=== PATIENT | male | born 1980 | race African-American/Black ===

== ENCOUNTER 2017-07-08 13:17 | Emergency (ER) | payer SELFPAY ==
[2017-07-08 13:25] VITALS: BP 168/101; BMI 28.7
[2017-07-08 13:52] LABS: BILIRUBIN,URINE NEGATIVE (NEGATIVE); BLOOD/HEMOGLOBIN,URINE NEGATIVE (NEGATIVE); GLUCOSE, URINE NEGATIVE (NEGATIVE); KETONES,URINE NEGATIVE (NEGATIVE); LEUKOCYTE ESTERASE ,URINE NEGATIVE (NEGATIVE); NITRITES,URINE NEGATIVE (NEGATIVE); PROTEIN,URINE 1+ (NEGATIVE); UROBILINOGEN,URINE NORMAL (NORMAL)
[2017-07-08] MEDS ORDERED: NORFLEX INJ IM ONE (13:53)
[2017-07-08] MEDS ORDERED: TORADOL 60 MG VIAL IM ONE (13:53)
--- NOTE | 2017-07-08 13:53 | DR.MBACK ---
HPI - Time Seen Time seen: 13:50 - PCP Primary Care Physician: NATALY - HPI Comment HPI Comment: NO FEVER. NO DYSURIA, DIARRHEA, N/V. PATIENTS PAIN IS GETTING WORSE. DENIES HEMATURIA. - Complaint Chief Complaint Doctors Comments: LOWER BACK PAIN, LOWER ABDOMINAL PAIN GOING TO SCROTUM AND UPPER THIGH AND CYST ON LT TESTIS THAT IS ALSO HURTING TODAY. STARTED TODAY. Chief Complaint:: PT C/O BACK THAT STARTED AROUND LUNCH PT HAS A CYST THAT IS ON HIS LEFT TESTICAL THAT CAUSES HIM PAIN.. PT IS UNABLE TO SIT .. PT C/O DULL AND THROBBING PAIN . - Reviewed Nurses Notes Review: Yes - Source History Provided: Patient - Mode of Arrival Mode of Arrival: Ambulatory - Timing Onset of Chief Complaint: 07/07/17 - Duration Duration: Constant Duration: Hours - Location Back Pain Location: Lumbar Radiation To: Buttock, Thigh - Severity Severity: Moderate - Quality Quality: Sharp - Context Onset: Spontaneous History of: None - Modifying Factors Worsened By: None - Associated Signs and Symptoms Back Pain Symptoms: Abdominal Pain Numbness: None Weakness: None PMH - PMH Past Medical History: Yes Past Medical History: Hypertension Past Surgical History: Yes Surgical History: Other - Family History History of Family Medical Conditions: Yes Family Medical History: Diabetes Mellitus, [place], Hypertension - Social History Does patient currently use any type of tobacco product: Yes Have you used tobacco products in the last 12 months: Yes Type of Tobacco Use: Cigarettes How many years tobacco product used: 23 Does any household member use tobacco: No Alcohol Use: None Do you use any recreational Drugs:: No Lives With: Family Lives Where: Home - infectious screening In the last 2 months have you had wt loss of >10#?: NO Have you had fever, night sweats or hemotysis?: No Have you traveled outside the country in the last 6 months?: No Isolation: Standard ROS - Review of Systems Constitutional: No Symptoms Reported Eyes: No Symptoms Reported. negative: Eye Pain, Discharge ENTM: No Symptoms Reported. negative: Ear Pain, Nose Discharge, Nose Congestion , Throat Pain Respiratoy: No Symptoms Reported. negative: Productive Cough, Short of Breath, Wheezing, Hemoptysis Cardiovascular: No Symptoms Reported Gastrointestinal/Abdominal: Abdominal Pain Genitourinary: No Symptoms Reported. negative: Dysuria, Frequency, Hematuria Neurological: No Symptoms Reported Musculoskeletal: Back Pain, Back Integumentary: No Symptoms Reported Hematologic/Lymphatic: No Symptoms Reported Endocrine: No Symptoms Reported All Other Systems: Reviewed and Negative PE - Vital Signs Vitals: Temperature 96.9 F Pulse Rate 115 Respiratory Rate 20 Blood Pressure [Right Arm] 155/52 Blood Pressure [Left Arm] 191/91 Blood Pressure 168/101 O2 Sat by Pulse Oximetry 100 - General Limitations: No Limitations General Appearance: Alert - Head Head Exam: Normal Inspection - Eyes Eye exam: Normal Appearance - ENT ENT Exam: Normal External Ear Exam - Chest Chest Inspection: Symmetric Chest Wall Rise - Respiratory Respiratory Exam: Normal Lung Sounds Bilat Respiratory Exam: Bilateral Clear to Auscultation - Cardiovascular Cardiovascular Exam: Regular Rate, Normal Rhythm, Normal Heart Sounds - Abdominal Exam Abdominal Exam: Normal Bowel Sounds, Soft. negative: Tenderness - Rectal Rectal Exam: Deferred - Genitourinary Exam: Male: Deferred - Extremities Extremities Exam: Normal Inspection - Back Back Exam: Paraspinal Tenderness - Neurological Neurological Exam: Alert, Oriented X3 - Psychiatric Psychiatric Exam: Normal Affect, Normal Mood - Skin Skin Exam: Normal Color MDM - Differential Diagnosis Differential Diagnosis: Bowel Obstruction, DJD, Musculoskeletal Pain, Pyelonephritis, Strain, Urolithiasis Course - Treatment Treatment: SEE ORDERS. - Education/Counseling Education/Counseling: Patient, Education Educated On: Diagnosis, Needs for Follow Up ROR - Labs Reviewed Laboratory Results Reviewed?: Yes Result Diagrams: 07/08/17 14:00 07/08/17 14:00 Laboratory: WBC 7.8 X10^3/uL (3.6-10.0) 07/08/17 14:00 RBC 5.02 X10^6/uL (4.7-6.0) 07/08/17 14:00 Hgb 14.6 g/dL (13.5-18.0) 07/08/17 14:00 Hct 42.1 % (42.0-54.0) 07/08/17 14:00 MCV 83.7 fL (80.0-100.0) 07/08/17 14:00 MCH 29.1 pg (27.0-34.0) 07/08/17 14:00 MCHC 34.8 g/dL (33.0-35.0) 07/08/17 14:00 RDW 13.9 % (11.6-16.5) 07/08/17 14:00 Plt Count 263 X10^3/uL (150.0-450.0) 07/08/17 14:00 MPV 7.0 fL (7.4-11.0) L 07/08/17 14:00 Neut % (Auto) 52.1 % (42.0-75.0) 07/08/17 14:00 Lymph % (Auto) 40.7 % (21.0-51.0) 07/08/17 14:00 Parmer % (Auto) 4.8 % (0.0-13.0) 07/08/17 14:00 Eos % (Auto) 1.5 % (0.9-2.9) 07/08/17 14:00 Baso % (Auto) 0.9 % (0.2-1.0) 07/08/17 14:00 Neut # (Auto) 4.0 x10^3/uL (2.2-4.8) 07/08/17 14:00 Lymph # (Auto) 3.2 X10^3/uL (1.3-2.9) H 07/08/17 14:00 Parmer # (Auto) 0.4 x10^3/uL (0.3-0.8) 07/08/17 14:00 Eos # (Auto) 0.1 x10^3/uL (0.0-0.2) 07/08/17 14:00 Baso # (Auto) 0.1 X10^3/uL (0.0-0.1) 07/08/17 14:00 Absolute Nucleated RBC 0.1 /100WBC 07/08/17 14:00 Sodium 138 mmol/L (136-145) 07/08/17 14:00 Corrected Sodium TNP 07/08/17 14:00 Potassium 3.9 mmol/L (3.5-5.1) 07/08/17 14:00 Chloride 103 mmol/L (98-107) 07/08/17 14:00 Carbon Dioxide 26.1 mmol/L (21-32) 07/08/17 14:00 BUN 17 mg/dL (7-18) 07/08/17 14:00 Creatinine 0.96 mg/dL (0.70-1.30) 07/08/17 14:00 Est GFR (MDRD) Af Amer > 60 (>60) 07/08/17 14:00 Est GFR (MDRD) Non-Af > 60 (>60) 07/08/17 14:00 Glucose 104 mg/dL (65-99) H 07/08/17 14:00 Calcium 8.7 mg/dL (8.5-10.1) 07/08/17 14:00 Corrected Calcium TNP 07/08/17 14:00 Total Bilirubin 0.40 mg/dL (0.2-1.0) 07/08/17 14:00 AST 17 Units/L (15-37) 07/08/17 14:00 ALT 27 Units/L (12-78) 07/08/17 14:00 Alkaline Phosphatase 80 Units/L (46-116) 07/08/17 14:00 Total Protein 7.9 g/dL (6.4-8.2) 07/08/17 14:00 Albumin 4.1 g/dL (3.4-5.0) 07/08/17 14:00 Globulin 3.8 g/dL (2.5-4.5) 07/08/17 14:00 Albumin/Globulin Ratio 1.1 Ratio (1.1-2.1) 07/08/17 14:00 Specimen Type Clean catch urine 07/08/17 13:40 Urine Color Yellow (YELLOW) 07/08/17 13:40 Urine Appearance Clear (CLEAR) 07/08/17 13:40 Urine pH 7.0 (5.0 - 8.0) 07/08/17 13:40 Ur Specific [place] 1.015 (1.000-1.030) 07/08/17 13:40 Urine Protein 1+ (NEGATIVE) 07/08/17 13:40 Urine Glucose (UA) Negative (NEGATIVE) 07/08/17 13:40 Urine Ketones Negative (NEGATIVE) 07/08/17 13:40 Urine Occult Blood Negative (NEGATIVE) 07/08/17 13:40 Urine Nitrite Negative (NEGATIVE) 07/08/17 13:40 Urine Bilirubin Negative (NEGATIVE) 07/08/17 13:40 Urine Urobilinogen Normal (NORMAL) 07/08/17 13:40 Ur Leukocyte Esterase Negative (NEGATIVE) 07/08/17 13:40 Urine RBC 0-2 /HPF (NONE SEEN) 07/08/17 13:40 Urine WBC 0-2 /HPF (NONE SEEN) 07/08/17 13:40 Ur Squamous Epith Cells Rare /HPF (NEGATIVE) 07/08/17 13:40 Urine Bacteria Negative /HPF (NEGATIVE) 07/08/17 13:40 Urine Sperm Rare /HPF (NEGATIVE) 07/08/17 13:40 Ur Culture Indicated? No/not indicated 07/08/17 13:40 - XRAY XRAY Interpreted by: Radiologist XRAY Findings: REPORT DISCUSS WITH PATIENT. - Diagnosis Discharge Problem: Abdominal pain Qualifiers: Abdominal location: lower abdomen, unspecified Qualified Code(s): R10.30 - Lower abdominal pain, unspecified Back pain Qualifiers: Back pain location: low back pain Chronicity: acute Back pain laterality: bilateral Sciatica presence: without sciatica Qualified Code(s): M54.5 - Low back pain - Discharge Plan Disposition: 01 HOME, SELF-CARE Condition: Stable Prescriptions: Cyclobenzaprine HCl [FLEXERIL 10 MG *] 10 mg PO TID #20 tab Ibuprofen [MOTRIN TAB 800 MG *] 800 mg PO Q8H PRN #30 tab PRN Reason: Pain/Inflammation Tramadol HCl 50 mg PO Q6H #15 tablet - Follow ups/Referrals Follow ups/Referrals: [facility] [Primary Care Provider] - 3 days - Instructions Instructions: Back Pain, Adult, Abdominal Pain, Adult, Bosx-to-Knmy Additional Instructions: RETURN TO ED IF WORSE.
[2017-07-08] MEDS ORDERED: NORFLEX INJ ONE (13:55)
[2017-07-08] MEDS ORDERED: TORADOL 60 MG VIAL ONE (13:55)
[2017-07-08 14:02] LABS: APPEARANCE,URINE CLEAR (CLEAR); COLOR,URINE YELLOW (YELLOW)
[2017-07-08 14:03] LABS: BACTERIA,URINE NEGATIVE /HPF (NEGATIVE); RBC,URINE 0-2 /HPF (NONE SEEN); SPERM,URINE RARE /HPF (NEGATIVE); SQUAMOUS EPITHELIAL CELL,UR RARE /HPF (NEGATIVE)
[2017-07-08 14:18] LABS: BASOPHILS # (AUTO) 0.1 X10^3/uL (0.0-0.1); BASOPHILS % (AUTO) 0.9 % (0.2-1.0); EOSINOPHILS # (AUTO) 0.1 x10^3/uL (0.0-0.2); EOSINOPHILS % (AUTO) 1.5 % (0.9-2.9); HEMATOCRIT 42.1 % (42.0-54.0); HEMOGLOBIN 14.6 g/dL (13.5-18.0); LYMPHOCYTES # (AUTO) 3.2 X10^3/uL (1.3-2.9); LYMPHOCYTES % (AUTO) 40.7 % (21.0-51.0); MEAN CORPUSCULAR HEMOGLOBIN 29.1 pg (27.0-34.0); MEAN CORPUSCULAR HGB CONC 34.8 g/dL (33.0-35.0); MEAN CORPUSCULAR VOLUME 83.7 fL (80.0-100.0); MONOCYTES # (AUTO) 0.4 x10^3/uL (0.3-0.8); MONOCYTES % (AUTO) 4.8 % (0.0-13.0); NEUTROPHILS % (AUTO) 52.1 % (42.0-75.0); PLATELET COUNT 263 X10^3/uL (150.0-450.0); RED BLOOD COUNT 5.02 X10^6/uL (4.7-6.0); RED CELL DISTRIBUTION WIDTH 13.9 % (11.6-16.5); WHITE BLOOD COUNT 7.8 X10^3/uL (3.6-10.0)
--- NOTE | 2017-07-08 14:24 | RAD ---
HISTORY: Abdominal pain, back pain Study: Flat and upright abdomen, PA chest Comparison: 03/25/2016 Findings: The abdominal gas pattern is nonspecific and nonobstructive. No pneumoperitoneum is identified. No ab normal masses or abnormal calcifications are identified. The regional skeleton is intact. The chest i s clear. IMPRESSION: Unremarkable acute abdominal series Reported By:
[2017-07-08 14:26] LABS: ALANINE AMINOTRANSFERASE 27 Units/L (12-78); ALBUMIN 4.1 g/dL (3.4-5.0); ALKALINE PHOSPHATASE 80 Units/L (46-116); ASPARTATE AMINO TRANSFERASE 17 Units/L (15-37); BLOOD UREA NITROGEN 17 mg/dL (7-18); CALCIUM 8.7 mg/dL (8.5-10.1); CARBON DIOXIDE 26.1 mmol/L (21-32); CHLORIDE 103 mmol/L (98-107); CREATININE 0.96 mg/dL (0.70-1.30); SODIUM 138 mmol/L (136-145); TOTAL PROTEIN 7.9 g/dL (6.4-8.2); eGFR BLACK RACES > 60 (>60); eGFR NON BLACK RACES > 60 (>60)
== END 2017-07-08 16:04 | disposition home or self-care (01) ==
LOC: ER 13:26
DX: R10.84 Generalized abdominal pain (principal); M54.5 Low back pain
CPT/HCPCS: 36415; 74022; 80053; 81001; 85025; 96372; 99282; J1885; J2360